=== PATIENT | male | born 1970 | race African-American/Black ===

== ENCOUNTER 2021-08-21 15:26 | Emergency (ER) | payer MEDICAID ==
[~2021-08-21] VITALS: Ht 177.8 cm; Wt 91.0 kg
[2021-08-21] MEDS ORDERED: LISI10TA26 PO (15:38)
[2021-08-21] MEDS ORDERED: SIMV-43 PO (15:38)
[2021-08-21] MEDS ORDERED: ALBU6.7H9 IH (15:38)
[2021-08-21 16:18] LABS: BASOPHILS % 0.4 % (0.0-2.0); EOSINOPHILS % 2.4 % (0.0-5.0); HEMATOCRIT. 43.3 % (42.0-52.0); HEMOGLOBIN. 14.9 g/dL (14.0-18.0); LYMPHOCYTES % 35.5 % (20.0-50.0); MEAN CORPUSCULAR HEMOGLOBIN 29.5 pg (28.0-32.0); MEAN CORPUSCULAR VOLUME 85.6 fL (80.0-94.0); MONOCYTES % 7.9 % (2.0-8.0); NEUTROPHILS % 53.8 % (40.0-76.0); PLATELET 194 x1000/uL (130-400); RED BLOOD CELL COUNT 5.06 mill/uL (4.7-6.1); RED CELL DISTRIBUTION WIDTH 13.3 % (11.6-14.6)
[2021-08-21 16:24] LABS: CHLORIDE 108 mEq/L (98-107)
[2021-08-21] MEDS ORDERED: DICYCLOMINE 10 MG/5 ML ORAL SYR PO STA (19:11)
[2021-08-21] MEDS ORDERED: OMEP40CA20 MT (19:11)
[2021-08-21] MEDS ORDERED: MAGNESIUM/ALUMINUM HYDROXIDE/SIMETHICONE 30ML UDC PO STA (19:11)
[2021-08-21 19:24] VITALS: BP 125/72
== END 2021-08-21 19:25 | disposition home or self-care (01) ==
LOC: ER 15:26
DX: R07.89 Other chest pain (principal)
CPT/HCPCS: 36415; 71045; 80053; 83880; 84484; 85025; 93005; 99285

== ENCOUNTER 2022-02-08 15:15 | Emergency (ER) | payer MEDICAID ==
[~2022-02-08] VITALS: Ht 175.3 cm; Wt 87.0 kg
[~2022-02-08 15:15] MED LIST: ALBU6.7H3 IH; LISI10TA26 PO; OMEP40CA20 MT; SIMV-43 PO
[2022-02-08 15:49] VITALS: BP 147/95
== END 2022-02-08 19:50 | disposition left against medical advice (07) ==
LOC: ER 15:15
DX: Z53.21 Procedure and treatment not carried out due to patient leaving prior to being seen by health care provider (principal)

== ENCOUNTER 2023-02-22 09:11 | Emergency (ER) | payer MEDICAID ==
[~2023-02-22] VITALS: Ht 180.3 cm; Wt 90.0 kg
[2023-02-22 09:15] VITALS: O2SAT 100
[2023-02-22] MEDS ORDERED: KETOROLAC 30MG/ML VIAL IM ONE (09:45)
[2023-02-22 11:45] VITALS: TEMP 98
[2023-02-22] MEDS ORDERED: ACETAMINOPHEN 325MG TABLET PO ONE (11:45)
[2023-02-22 12:15] VITALS: BP 187/110; PULSE 73; RESP 20
[2023-02-22] MEDS ORDERED: KETOROLAC 30MG/ML VIAL IM NR (12:15)
[2023-02-22] MEDS ORDERED: METH-653 MT (12:31)
[2023-02-22] MEDS ORDERED: IBUP-2029 MT (12:31)
== END 2023-02-22 13:22 | disposition home or self-care (01) ==
LOC: ER 09:11
DX: M19.011 Primary osteoarthritis, right shoulder (principal); J45.909 Unspecified asthma, uncomplicated; E78.00 Pure hypercholesterolemia, unspecified; I10 Essential (primary) hypertension; Z98.890 Other specified postprocedural states
CPT/HCPCS: 99283; 73030; 96372; J1885; A4565